=== PATIENT | male | born 1995 | race Caucasian/White ===

== ENCOUNTER 2022-12-13 03:40 | Emergency (ER) | payer SELFPAY ==
[~2022-12-13] VITALS: Ht 177.8 cm; Wt 68.0 kg
[2022-12-13 03:56] VITALS: BP 132/70; PULSE 110; RESP 14; TEMP 98.5; O2SAT 98
[2022-12-13 04:23] VITALS: BP 132/70; PULSE 110; RESP 14; TEMP 98.5; O2SAT 98
--- NOTE | 2022-12-13 04:23 | NUR ---
PATIENT BIB [facility] . PATIENT EXAMINED BY DR. HASKINS. PATIENT MEDICALLY CLEARED AND RELEASED IN CUSTODY IN STABLE CONDITION. ORIGINAL PRE-BOOK FORM GIVEN TO OFFICER GRANT.
== END 2022-12-13 04:23 ==
LOC: MED 03:40
DX: S50.312A Abrasion of left elbow, initial encounter (principal); Z02.89 Encounter for other administrative examinations; V89.2XXA Person injured in unspecified motor-vehicle accident, traffic, initial encounter; Y93.89 Activity, other specified; Y92.410 Unspecified street and highway as the place of occurrence of the external cause; Y99.8 Other external cause status
CPT/HCPCS: 99283